=== PATIENT | male | born 1960 | race Caucasian/White ===

== ENCOUNTER 2024-05-01 19:44 | Emergency (ER) | payer MEDICARE ==
[~2024-05-01] VITALS: Ht 177.8 cm; Wt 117.9 kg
[2024-05-01 20:23] LABS: BASOPHILS ABSOLUTE AUTO 0.05 K/mm3 (0.00-0.23); BASOPHILS PERCENT AUTO 1 % (0-2); EOSINOPHILS ABSOLUTE AUTO 0.19 K/mm3 (0.00-0.68); EOSINOPHILS PERCENT AUTO 3 % (0-6); Hematocrit 30.1 % (37.0-53.0); Hemoglobin 9.6 g/dL (13.5-17.5); IMMATURE GRAN ABSOLUTE AUTO 0.02 K/mm3 (0.00-0.10); IMMATURE GRAN PERCENT AUTO 0 % (0-1); LYMPHOCYTES PERCENT AUTO 18 % (21-46); MONOCYTES ABSOLUTE AUTO 0.46 K/mm3 (0.16-1.47); MONOCYTES PERCENT AUTO 7 % (4-13); Mean Corpuscular HGB 25.3 pg (26.0-34.0); Mean Corpuscular HGB Conc 31.9 g/dL (31.5-36.5); Mean Corpuscular Volume 79 fL (80-100); Mean Platelet Volume 9.5 fL (9.1-12.4); NEUTROPHILS ABSOLUTE AUTO 4.41 K/mm3 (1.96-9.15); NEUTROPHILS PERCENT AUTO 71 % (41-73); Platelet Count 329 K/mm3 (150-400); RDW Coefficient Variation 17.2 % (11.7-14.2); RDW Standard Deviation 50.3 fL (35.1-46.3); White Blood Cell Count 6.23 K/mm3 (4.00-11.30)
[2024-05-01 20:45] LABS: Albumin, Blood 2.6 g/dL (3.4-5.0); Albumin/Globulin Ratio 0.6 (0.8-1.8); Bilirubin, Total 0.3 mg/dL (0.1-1.0); Bun/Creatinine Ratio 20.4 (12.0-20.0); Calcium, Blood 8.2 mg/dL (8.5-10.1); Creatinine, Blood 1.37 mg/dL (0.60-1.20); Globulin, Blood 4.7 g/dL (2.2-4.0); Potassium, Blood 4.1 mmol/L (3.5-5.5); Total Protein, Blood 7.3 g/dL (6.4-8.2)
[2024-05-01] MEDS ORDERED: NS 1,000 ML IV SCH (23:55)
[2024-05-01] MEDS ORDERED: Azithromycin 250 MG Tab PO ONE (23:55)
[2024-05-01] MEDS ORDERED: Amoxicillin/Clavulanate K 875 MG Tab PO ONE (23:55)
[2024-05-02 00:34] LABS: Base Excess Venous 0.3 mmol/L; Bicarbonate Venous 24.6 mmol/L (24.0-30.0); PCO2 Venous 40.3 mmHg (38-42)
[2024-05-02 00:43] LABS: Source, Urine Clean Catch
[2024-05-02 00:45] LABS: Bilirubin, Urine Neg (Neg); Blood, Urine Neg (Neg); Glucose Qualitative, Urine 4+ (Neg); Ketones, Urine Neg (Neg); Leukocyte Esterase, Urine Neg (Neg); Nitrite, Urine Neg (Neg); Protein, Urine 1+ (Neg); Urobilinogen, Urine NORM (Normal)
[2024-05-02 00:50] LABS: Appearance, Urine Clear (Clear); Color, Urine Pale Yellow (P-Yellow)
[2024-05-02] MEDS ORDERED: AMOCLA875 PO (01:01)
[2024-05-02] MEDS ORDERED: AZIT250 PO (01:01)
== END 2024-05-02 01:43 | disposition home or self-care (01) ==
LOC: ER 19:44
PROVIDERS: Emergency Medicine; Student in an Organized Health Care Education/Training Program
DX: J18.9 Pneumonia, unspecified organism (principal); D64.9 Anemia, unspecified; E11.65 Type 2 diabetes mellitus with hyperglycemia; R79.89 Other specified abnormal findings of blood chemistry; Z89.512 Acquired absence of left leg below knee; Z89.611 Acquired absence of right leg above knee
CPT/HCPCS: 71046; 80053; 82010; 82803; 83880; 84484; 85025; 93005; 93010; 99285-25; A9270; J7030

== ENCOUNTER 2024-05-06 16:25 | Emergency (ER) | payer MEDICARE ==
[~2024-05-06] VITALS: Ht 177.8 cm; Wt 117.9 kg
[~2024-05-06 16:25] MED LIST: AMOCLA875 PO; AZIT250 PO
[2024-05-06 16:54] LABS: Base Excess Venous 0.7 mmol/L; Bicarbonate Venous 24.5 mmol/L (24.0-30.0); pH Blood Venous 7.39 (7.34-7.37)
[2024-05-06 17:00] LABS: BASOPHILS ABSOLUTE AUTO 0.06 K/mm3 (0.00-0.23); BASOPHILS PERCENT AUTO 1 % (0-2); EOSINOPHILS PERCENT AUTO 5 % (0-6); Hematocrit 32.8 % (37.0-53.0); Hemoglobin 10.1 g/dL (13.5-17.5); IMMATURE GRAN ABSOLUTE AUTO 0.02 K/mm3 (0.00-0.10); IMMATURE GRAN PERCENT AUTO 0 % (0-1); LYMPHOCYTES PERCENT AUTO 18 % (21-46); MONOCYTES ABSOLUTE AUTO 0.32 K/mm3 (0.16-1.47); MONOCYTES PERCENT AUTO 6 % (4-13); Mean Corpuscular HGB 24.2 pg (26.0-34.0); Mean Corpuscular HGB Conc 30.8 g/dL (31.5-36.5); Mean Corpuscular Volume 79 fL (80-100); Mean Platelet Volume 9.6 fL (9.1-12.4); NEUTROPHILS ABSOLUTE AUTO 3.84 K/mm3 (1.96-9.15); NEUTROPHILS PERCENT AUTO 69 % (41-73); Platelet Count 434 K/mm3 (150-400); RDW Coefficient Variation 17.7 % (11.7-14.2); RDW Standard Deviation 50.2 fL (35.1-46.3); Red Blood Cell Count 4.18 M/mm3 (4.30-5.90); White Blood Cell Count 5.54 K/mm3 (4.00-11.30)
[2024-05-06 17:13] LABS: Bun/Creatinine Ratio 20.6 (12.0-20.0); Calcium, Blood 8.7 mg/dL (8.5-10.1); Creatinine, Blood 1.02 mg/dL (0.60-1.20); Potassium, Blood 4.4 mmol/L (3.5-5.5)
[2024-05-06 18:08] LABS: Influenza A, PCR NEGATIVE (NEGATIVE); Influenza B, PCR NEGATIVE (NEGATIVE); Resp Syncytial Virus, PCR NEGATIVE (NEGATIVE); SARS-Cov-2 (COVID-19) PCR, MMC NEGATIVE (NEGATIVE)
[2024-05-06] MEDS ORDERED: Furosemide 10 MG/ML 4ML Vial IV ONE (20:40)
[2024-05-06] MEDS ORDERED: LevoFLOXacin 750 MG Tab PO ONE (21:00)
[2024-05-06] MEDS ORDERED: LEVFLO500 PO (21:01)
[2024-05-06] MEDS ORDERED: BENZ100A PO (21:01)
[2024-05-06] MEDS ORDERED: FURO20 PO (21:01)
[2024-05-06] MEDS ORDERED: POTA10T PO (21:01)
== END 2024-05-06 21:34 | disposition home or self-care (01) ==
LOC: ER 16:25
PROVIDERS: Emergency Medicine
DX: J90 Pleural effusion, not elsewhere classified (principal); R06.02 Shortness of breath; Z59.89 Other problems related to housing and economic circumstances; E11.9 Type 2 diabetes mellitus without complications
CPT/HCPCS: 0241U; 71045; 71260; 80048; 82803; 83880; 84484; 85025; 85379; 93005; 93010; 96374; 99285-25; A9270; J1940; Q9967

== ENCOUNTER → 2024-06-12 | Outpatient (CLI) | payer MEDICARE ==
[~2024-06-12] MED LIST changes: +BENZ100A PO; +FURO20 PO; +LEVFLO500 PO; +POTA10T PO
== END ==
LOC: LAB 17:36 → LAB SHORT 17:36
DX: R82.90 Unspecified abnormal findings in urine (principal)
CPT/HCPCS: 87086

== ENCOUNTER 2024-06-19 15:50 | Emergency (ER) | payer MEDICARE ==
[~2024-06-19] VITALS: Ht 177.8 cm; Wt 117.9 kg
[2024-06-19 16:31] LABS: BASOPHILS ABSOLUTE AUTO 0.03 K/mm3 (0.00-0.23); BASOPHILS PERCENT AUTO 1 % (0-2); EOSINOPHILS ABSOLUTE AUTO 0.22 K/mm3 (0.00-0.68); EOSINOPHILS PERCENT AUTO 4 % (0-6); Hematocrit 30.2 % (37.0-53.0); IMMATURE GRAN ABSOLUTE AUTO 0.02 K/mm3 (0.00-0.10); IMMATURE GRAN PERCENT AUTO 0 % (0-1); LYMPHOCYTES ABSOLUTE AUTO 1.01 K/mm3 (0.84-5.20); LYMPHOCYTES PERCENT AUTO 20 % (21-46); MONOCYTES ABSOLUTE AUTO 0.36 K/mm3 (0.16-1.47); MONOCYTES PERCENT AUTO 7 % (4-13); Mean Corpuscular HGB 22.8 pg (26.0-34.0); Mean Corpuscular HGB Conc 29.8 g/dL (31.5-36.5); Mean Corpuscular Volume 77 fL (80-100); Mean Platelet Volume 10.4 fL (9.1-12.4); NEUTROPHILS ABSOLUTE AUTO 3.42 K/mm3 (1.96-9.15); NEUTROPHILS PERCENT AUTO 68 % (41-73); Platelet Count 286 K/mm3 (150-400); RDW Coefficient Variation 18.6 % (11.7-14.2); RDW Standard Deviation 51.7 fL (35.1-46.3); Red Blood Cell Count 3.94 M/mm3 (4.30-5.90); White Blood Cell Count 5.06 K/mm3 (4.00-11.30)
[2024-06-19 16:56] LABS: Albumin/Globulin Ratio 0.7 (0.8-1.8); Bilirubin, Total 0.4 mg/dL (0.1-1.0); Bun/Creatinine Ratio 21.4 (12.0-20.0); Calcium, Blood 8.6 mg/dL (8.5-10.1); Creatinine, Blood 0.84 mg/dL (0.60-1.20); Globulin, Blood 4.4 g/dL (2.2-4.0); Potassium, Blood 4.6 mmol/L (3.5-5.5); Total Protein, Blood 7.4 g/dL (6.4-8.2)
[2024-06-19] MEDS ORDERED: AZIT250 PO (19:56)
[2024-06-19] MEDS ORDERED: BUDESONIDE-FO10.2 G2 INH (19:56)
== END 2024-06-19 20:30 | disposition home or self-care (01) ==
LOC: ER 15:50
PROVIDERS: Emergency Medicine
DX: R06.02 Shortness of breath (principal); E11.9 Type 2 diabetes mellitus without complications; Z88.0 Allergy status to penicillin; Z88.5 Allergy status to narcotic agent; Z88.1 Allergy status to other antibiotic agents
CPT/HCPCS: 71046; 80053; 83880; 84484; 85025; 93005; 93010; 99285-25

== ENCOUNTER 2024-06-23 09:29 | Day surgery (SDC) | payer MEDICARE ==
[~2024-06-23 09:29] MED LIST changes: +BUDESONIDE-FO10.2 G2 INH
== END 2024-06-23 23:00 | disposition home or self-care (01) ==
LOC: WOUND 09:29
DX: T81.31XA Disruption of external operation (surgical) wound, not elsewhere classified, initial encounter (principal); E11.622 Type 2 diabetes mellitus with other skin ulcer; Z89.512 Acquired absence of left leg below knee; Z89.511 Acquired absence of right leg below knee; Z88.0 Allergy status to penicillin; Z88.5 Allergy status to narcotic agent; Z88.1 Allergy status to other antibiotic agents; I50.9 Heart failure, unspecified; K21.9 Gastro-esophageal reflux disease without esophagitis
CPT/HCPCS: A6213; G0463

== ENCOUNTER 2024-07-01 02:17 | Day surgery (SDC) | payer MEDICARE | END 2024-07-01 23:33 | disposition home or self-care (01) | LOC: WOUND 02:17 | DX: E11.622 Type 2 diabetes mellitus with other skin ulcer (principal); T81.31XA Disruption of external operation (surgical) wound, not elsewhere classified, initial encounter; Z88.0 Allergy status to penicillin; Z88.1 Allergy status to other antibiotic agents; Z88.5 Allergy status to narcotic agent; Z89.511 Acquired absence of right leg below knee; Z89.512 Acquired absence of left leg below knee | CPT/HCPCS: A6213; G0463 ==

== ENCOUNTER 2024-07-09 03:02 | Day surgery (SDC) | payer MEDICARE | END 2024-07-09 23:00 | disposition home or self-care (01) | LOC: WOUND 03:02 | DX: E11.622 Type 2 diabetes mellitus with other skin ulcer (principal); L97.815 Non-pressure chronic ulcer of other part of right lower leg with muscle involvement without evidence of necrosis; T81.31XD Disruption of external operation (surgical) wound, not elsewhere classified, subsequent encounter; E11.69 Type 2 diabetes mellitus with other specified complication; Z89.511 Acquired absence of right leg below knee; Z89.512 Acquired absence of left leg below knee; Y83.8 Other surgical procedures as the cause of abnormal reaction of the patient, or of later complication, without mention of misadventure at the time of the procedure | CPT/HCPCS: A6213; G0463 ==

== ENCOUNTER 2024-08-04 10:20 | Inpatient (IN) | payer MEDICARE, BC ==
[~2024-08-04] VITALS: Ht 175.3 cm; Wt 107.7 kg
[2024-08-04] MEDS ORDERED: PREG150 PO (10:52)
[2024-08-04] MEDS ORDERED: CARV6.25 PO (10:52)
[2024-08-04] MEDS ORDERED: CLOP75 PO (10:53)
[2024-08-04] MEDS ORDERED: TAMS.4ER PO (10:53)
[2024-08-04] MEDS ORDERED: ROSUVASTATIN CA20 MG PO (10:53)
[2024-08-04] MEDS ORDERED: PANTOPRAZOLE SO40 M2 PO (10:54)
[2024-08-04] MEDS ORDERED: TRAZ100 PO (10:54)
[2024-08-04] MEDS ORDERED: DULO60 PO (10:55)
[2024-08-04] MEDS ORDERED: METFORMIN HCL500 M2 PO (10:55)
[2024-08-04] MEDS ORDERED: METF500 PO (10:56)
[2024-08-04] MEDS ORDERED: TORSE20 PO (10:56)
[2024-08-04] MEDS ORDERED: ASPI81CH PO (10:56)
[2024-08-04] MEDS ORDERED: GABA100 PO (10:57)
[2024-08-04] MEDS ORDERED: KLOR-CON 1010 ME9 PO (10:58)
[2024-08-04] MEDS ORDERED: Ondansetron HCl 2 MG / ML 2ML Vial IV PRN (11:05)
[2024-08-04 11:24] LABS: BASOPHILS ABSOLUTE AUTO 0.03 K/mm3 (0.00-0.23); BASOPHILS PERCENT AUTO 1 % (0-2); EOSINOPHILS ABSOLUTE AUTO 0.03 K/mm3 (0.00-0.68); EOSINOPHILS PERCENT AUTO 1 % (0-6); Hematocrit 35.1 % (37.0-53.0); Hemoglobin 10.5 g/dL (13.5-17.5); IMMATURE GRAN ABSOLUTE AUTO 0.03 K/mm3 (0.00-0.10); IMMATURE GRAN PERCENT AUTO 1 % (0-1); LYMPHOCYTES ABSOLUTE AUTO 0.37 K/mm3 (0.84-5.20); LYMPHOCYTES PERCENT AUTO 7 % (21-46); MONOCYTES ABSOLUTE AUTO 0.17 K/mm3 (0.16-1.47); MONOCYTES PERCENT AUTO 3 % (4-13); Mean Corpuscular HGB 23.2 pg (26.0-34.0); Mean Corpuscular HGB Conc 29.9 g/dL (31.5-36.5); Mean Corpuscular Volume 78 fL (80-100); NEUTROPHILS ABSOLUTE AUTO 4.85 K/mm3 (1.96-9.15); NEUTROPHILS PERCENT AUTO 89 % (41-73); Platelet Count 219 K/mm3 (150-400); RDW Coefficient Variation 21.8 % (11.7-14.2); RDW Standard Deviation 60.3 fL (35.1-46.3); Red Blood Cell Count 4.52 M/mm3 (4.30-5.90); White Blood Cell Count 5.48 K/mm3 (4.00-11.30)
[2024-08-04 11:26] LABS: Mean Platelet Volume 10.9 fL (9.1-12.4)
[2024-08-04 11:46] LABS: Albumin/Globulin Ratio 0.9 (0.8-1.8); Bilirubin, Total 0.9 mg/dL (0.1-1.0); Bun/Creatinine Ratio 25.2 (12.0-20.0); Creatinine, Blood 0.91 mg/dL (0.60-1.20); Globulin, Blood 4.4 g/dL (2.2-4.0); Potassium, Blood 4.3 mmol/L (3.5-5.5); Total Protein, Blood 8.4 g/dL (6.4-8.2)
[2024-08-04] MEDS ORDERED: Aspirin 325 MG Tab PO ONE (12:05)
[2024-08-04] MEDS ORDERED: Nitroglycerin 0.4 MG SUBL SL PRN (12:05)
[2024-08-04] MEDS ORDERED: Furosemide 10 MG/ML 10ML Vial IV ONE (12:15)
[2024-08-04] MEDS ORDERED: Ondansetron HCl 2 MG / ML 2ML Vial IV ONE (12:15)
[2024-08-04 13:01] LABS: International Normalized Ratio 1.14; Prothrombin Time Results 12.4 Sec (9.7-11.5)
[2024-08-04] MEDS ORDERED: Heparin Sodium 5000 Units/ML 1ML MDV IV ONE ×2 (13:45→19:20)
[2024-08-04] MEDS ORDERED: Heparin Sodium,Porcine/0.5 NS 500 ML IV SCH ×2 (13:45→19:20)
[2024-08-04 14:20] VITALS: BP 157/89
[2024-08-04 15:33] VITALS: BP 140/87
[2024-08-04] MEDS ORDERED: Bumetanide 0.25 MG/ML 4ML ViaL IV SCH (16:00)
[2024-08-04] MEDS ORDERED: Aspirin 81 MG Chew PO SCH (16:00)
[2024-08-04] MEDS ORDERED: Enoxaparin 40 MG/0.4 ML SYR SC SCH (16:00)
[2024-08-04] MEDS ORDERED: Empagliflozin 10 MG TAB PO SCH (16:00)
[2024-08-04] MEDS ORDERED: Atorvastatin 40 MG Tab PO SCH (16:00)
[2024-08-04] MEDS ORDERED: Carvedilol 3.125 MG Tab PO SCH (16:00)
[2024-08-04] MEDS ORDERED: Spironolactone 50 MG Tab PO SCH (16:00)
[2024-08-04] MEDS ORDERED: Clopidogrel Bisulfate 75 MG Tab PO SCH (16:00)
[2024-08-04] MEDS ORDERED: Insulin Regular 100 UNIT/ML 10ML Vial SC SCH (16:30)
--- NOTE | 2024-08-04 17:39 | NUR ---
SHIFT SUMMARY PT REMAINS ALERT AND ORIENTED. BP STABLE. HR REMAINS NSR WITH FIRST DEGREE 90'S. O2 SATS REMAIN ABOVE 90% ON 2L NC. PT DENIES ANY PAIN. PT DOES COMPLAIN OF NAUSEA. 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 CLARK IN TO ASSESS WOUND. ORDERS TO KEEP OPEN TO AIR. PT ABLE TO REPOSITION HIMSELF IN THE BED. DR. ALEJANDRE IN THIS EVENING TO DISCUSS ANGIOGRAM. PLAN TO BE NPO AT MIDNIGHT. AWAITING PHARMACY FOR HEPARIN DRIP ORDERS. WILL REPORT OFF TO ONCOMING RN
--- NOTE | 2024-08-04 19:40 | NUR ---
ASSUMPTION OF CARE ASSUMED PT'S CARE AT 1900,PT AWAKE RESTING IN BED.BEDSIDE REPORT COMPLETED,PLAN OF CARE REVIEWED.HEPARIN GTT INITIATED PER ORDER.TEACHING ON LAB DRAWS AND BLEEDING RISKS WHILE ON HEPARIN GTT COMPLETED.PT VERBALIZES UNDERSTANDING.PT REQUESTED MELATONIN FOR SLEEP IN ADDITION TO SCHEDULED TRAZODONE.CALL LIGHT AND PT'S ITEMS WITHIN REACH.MONITORING ONGOING PER CAREPLAN.
[2024-08-04 20:05] VITALS: BP 135/79
[2024-08-04] MEDS ORDERED: Melatonin 5 MG Tablet PO PRN (20:22)
[2024-08-04] MEDS ORDERED: TraZODone HCl 100 MG Tab PO SCH (21:00)
[2024-08-04] MEDS ORDERED: Pregabalin 75 MG Cap PO SCH (21:00)
[2024-08-04] MEDS ORDERED: Sacubitril/Valsartan 24 MG-26 MG Tab PO SCH (21:00)
[2024-08-04] MEDS ORDERED: Gabapentin 300 MG Cap PO SCH (21:00)
[2024-08-04] MEDS ORDERED: DULoxetine HCL 60 MG Capsule DR PO SCH (21:00)
[2024-08-05] VITALS (16 sets, daily range): BP systolic 96–144; BP diastolic 34–111
[2024-08-05 02:13] LABS: BASOPHILS ABSOLUTE AUTO 0.04 K/mm3 (0.00-0.23); BASOPHILS PERCENT AUTO 1 % (0-2); EOSINOPHILS ABSOLUTE AUTO 0.08 K/mm3 (0.00-0.68); EOSINOPHILS PERCENT AUTO 1 % (0-6); Hematocrit 32.8 % (37.0-53.0); Hemoglobin 10.2 g/dL (13.5-17.5); IMMATURE GRAN ABSOLUTE AUTO 0.03 K/mm3 (0.00-0.10); IMMATURE GRAN PERCENT AUTO 1 % (0-1); LYMPHOCYTES ABSOLUTE AUTO 1.04 K/mm3 (0.84-5.20); LYMPHOCYTES PERCENT AUTO 18 % (21-46); MONOCYTES ABSOLUTE AUTO 0.41 K/mm3 (0.16-1.47); MONOCYTES PERCENT AUTO 7 % (4-13); Mean Corpuscular HGB 23.5 pg (26.0-34.0); Mean Corpuscular HGB Conc 31.1 g/dL (31.5-36.5); Mean Corpuscular Volume 76 fL (80-100); Mean Platelet Volume 10.4 fL (9.1-12.4); NEUTROPHILS ABSOLUTE AUTO 4.16 K/mm3 (1.96-9.15); NEUTROPHILS PERCENT AUTO 72 % (41-73); Platelet Count 230 K/mm3 (150-400); RDW Coefficient Variation 21.8 % (11.7-14.2); RDW Standard Deviation 59.2 fL (35.1-46.3); Red Blood Cell Count 4.34 M/mm3 (4.30-5.90); White Blood Cell Count 5.76 K/mm3 (4.00-11.30)
[2024-08-05 02:39] LABS: Magnesium, Blood 1.7 mg/dL (1.6-2.4)
[2024-08-05 02:47] LABS: Albumin, Blood 3.6 g/dL (3.4-5.0); Albumin/Globulin Ratio 0.9 (0.8-1.8); Bilirubin, Total 0.8 mg/dL (0.1-1.0); Bun/Creatinine Ratio 21.5 (12.0-20.0); Calcium, Blood 10.3 mg/dL (8.5-10.1); Creatinine, Blood 1.07 mg/dL (0.60-1.20); Potassium, Blood 3.8 mmol/L (3.5-5.5); Total Protein, Blood 7.6 g/dL (6.4-8.2)
[2024-08-05] MEDS ORDERED: Dose Adjust by Pharmacy XX STA ×2 (03:00→22:00)
[2024-08-05] MEDS ORDERED: Heparin Sodium 5000 Units/ML 1ML MDV IV ONE (03:05)
[2024-08-05] MEDS ORDERED: Pantoprazole Sodium 40 MG Tab PO SCH (06:00)
[2024-08-05] MEDS ORDERED: Magnesium Sulf 2 GM/Water 50ML 50 ML IV ONE (06:25)
[2024-08-05] MEDS ORDERED: NS 500 ML IV ONE (06:35)
--- NOTE | 2024-08-05 06:49 | NUR ---
PT MONITORED THROUGH THE SHIFT,NO ACUTE CHANGES NOTED.PT DENIES CHEST PAIN/PRESSURE.REPORTS SLEEPING WELL OVERNIGHT.CONTINUES ON HEPARIN GTT ORDERED.PT HAS BEEN NPO SINCE MIDNIGHT ORDERED.PT DENIES PAIN,DENIES NEEDS AT THIS TIME.CALL LIGHT AND PTS ITEMS WITHIN REACH.
[2024-08-05] MEDS ORDERED: NiCARdipine HCL 1,000 MCG/5 ML SYR ONE (07:54)
[2024-08-05] MEDS ORDERED: NS 250 ML IV ONE (07:54)
[2024-08-05] MEDS ORDERED: Nitroglycerin 2 MG/20 ML BTL ONE (07:54)
[2024-08-05] MEDS ORDERED: NS 2,000 ML IV ONE (07:54)
[2024-08-05] MEDS ORDERED: Heparin Sodium 1000 Units/ML 10ML MDV ONE (07:54)
[2024-08-05 07:56] LABS: CHOL/HDL RATIO 2.4; Cholesterol 120 mg/dL (50-200); HDL Cholesterol 49 mg/dL (>39); LDL/HDL RATIO 1.1; Low Density Lipoprotein Chol 54 mg/dL (0-110); Triglycerides 83 mg/dL (30-160); Very Low Density Lipoprot Chol 16 mg/dL (6-32)
[2024-08-05] MEDS ORDERED: Midazolam HCl 1MG / ML 2ML Vial ONE (08:58)
[2024-08-05] MEDS ORDERED: FentaNYL Citrate 50 MCG/ML 2 ML Injection ONE (08:58)
[2024-08-05] MEDS ORDERED: Tamsulosin HCl 0.4 MG Cap PO SCH ×2 (09:00→21:00)
[2024-08-05] MEDS ORDERED: Furosemide 10 MG/ML 4ML Vial IV SCH (09:00)
[2024-08-05] MEDS ORDERED: DiphenhydrAMINE HCl 50 MG/ML 1ML Vial ONE (09:06)
--- NOTE | 2024-08-05 10:07 | NUR ---
SPOKE WITH DR. GOODRICH ABOUT TR BAND AND HEPARIN GTT RESTART, HAD ALREADY UPDATED ORDER, CALLED [facility] AND HAD STOPPED HEPARIN GTT. SEE ADDITIONAL NOTES/PROCEDURE REPORTS.
--- NOTE | 2024-08-05 10:08 | NUR ---
Pt returned from lab animal technician with heparin gtt infusing. Noted Dr. Gonsales order at this time to restart after TR band deflated, so it was stopped at this time. Pharmacy notified.
--- NOTE | 2024-08-05 10:20 | NUR ---
TR BAND IN PLACE, NO BLEEDING, NO SWELLING, NO HEMATOMA. PT IS SLEEPING. SEQUENTIAL VITAL SIGNS Q 15MIN IN PROGRESS, CONTINUOUS SPO2 MONITORING WELL TELEMETRY. WEARING 2 L/MIN OF O2 DUE TO SLEEP APNEA AND HYPOXIA DURING SLEEP LAST NIGHT PER NOC SHIFT RN REPORT. NOTIFIED PHARMACY OF HEPARIN GTT ORDERS FROM [facility].
--- NOTE | 2024-08-05 11:50 | NUR ---
Right radial site recovering without any changes. Pt's is at the bedside. Pt is awake enough to sit up and eat, drink and take po meds.
--- NOTE | 2024-08-05 13:23 | NUR ---
TR band is completely deflated. Scant amount of blood noted, dried, around the band border but no hematoma, no active bleeding and no swelling. Pt denies any discomfort. Rema Howard notified that pt's is in the room and they would like to talk with the still worker helper when available.
--- NOTE | 2024-08-05 14:28 | NUR ---
TR band removed, site cleansed with chlorohexidine and dried with gauze. sterile tegederm dressing applied to the site. NO hematoma, no bleeding and no swelling. Small amount of bruising noted surrounding the site. Pt has no voiced complaints. and pt state doctor has not been to see them today.
--- NOTE | 2024-08-05 16:18 | NUR ---
Dr. Saucedo here to talk with patient and his . Plan is for pt to continue diuresis, get discharged probably in 2 days when life vest is available and then at a later date to get surgery for a defibrillator. Pt and expressed gratitude for having some answers and an agreeable plan for the pt's care.
[2024-08-05] MEDS ORDERED: Melatonin 5 MG Tablet PO PRN (20:35)
[2024-08-06] VITALS (7 sets, daily range): BP systolic 96–151; BP diastolic 61–102
[2024-08-06 04:19] LABS: BASOPHILS ABSOLUTE AUTO 0.06 K/mm3 (0.00-0.23); BASOPHILS PERCENT AUTO 1 % (0-2); EOSINOPHILS ABSOLUTE AUTO 0.33 K/mm3 (0.00-0.68); EOSINOPHILS PERCENT AUTO 5 % (0-6); Hematocrit 34.5 % (37.0-53.0); Hemoglobin 10.5 g/dL (13.5-17.5); IMMATURE GRAN ABSOLUTE AUTO 0.02 K/mm3 (0.00-0.10); IMMATURE GRAN PERCENT AUTO 0 % (0-1); LYMPHOCYTES PERCENT AUTO 19 % (21-46); MONOCYTES PERCENT AUTO 6 % (4-13); Mean Corpuscular HGB 23.1 pg (26.0-34.0); Mean Corpuscular HGB Conc 30.4 g/dL (31.5-36.5); Mean Corpuscular Volume 76 fL (80-100); Mean Platelet Volume 10.1 fL (9.1-12.4); NEUTROPHILS ABSOLUTE AUTO 4.32 K/mm3 (1.96-9.15); NEUTROPHILS PERCENT AUTO 68 % (41-73); Platelet Count 230 K/mm3 (150-400); RDW Coefficient Variation 21.9 % (11.7-14.2); RDW Standard Deviation 59.2 fL (35.1-46.3); Red Blood Cell Count 4.54 M/mm3 (4.30-5.90); White Blood Cell Count 6.33 K/mm3 (4.00-11.30)
[2024-08-06 04:38] LABS: Bun/Creatinine Ratio 27.6 (12.0-20.0); Calcium, Blood 9.4 mg/dL (8.5-10.1); Creatinine, Blood 1.16 mg/dL (0.60-1.20); Potassium, Blood 3.5 mmol/L (3.5-5.5)
[2024-08-06] MEDS ORDERED: Dose Adjust by Pharmacy XX STA ×2 (04:58→12:19)
--- NOTE | 2024-08-06 06:32 | NUR ---
SHIFT SUMMARY PT HAS TOLERATED SHIFT WELL WITH NO SIGNIFICANT EVENTS OR CHANGES OVERNIGHT. PT STATES THAT HE IS TIRED THIS MORNING. PT WAS NOT ABLE TO SLEEP FOR EXTENDED PERIODS DUE TO VARIOUS INTERRUPTIONS THROUGHOUT NIGHT. PT DOES NOT HAVE ANY COMPLAINTS OF PAIN AT THIS TIME. PT APPEARS TO BE RESTING COMFORTABLY IN ROOM AT THIS TIME. WILL CONTINUE TO MONITOR UNTIL REPORT PASSED TO DAY SHIFT TEAM.
--- NOTE | 2024-08-06 12:31 | NUR ---
Drs. Reynolds and Gabby notified of trending down troponin.
[2024-08-06] MEDS ORDERED: CARV3.125 PO (13:25)
[2024-08-06] MEDS ORDERED: ENTRESTO 24 MG1 EACH PO (13:28)
[2024-08-06] MEDS ORDERED: JARDIANCE10 MG PO (13:28)
[2024-08-06] MEDS ORDERED: ALDACTONE50 MG PO (13:29)
--- NOTE | 2024-08-06 15:25 | NUR ---
REPORT RECIEVED FROM ALEJANDRO HALLMAN. THIS RN TO TAKE OVER CARE.
--- NOTE | 2024-08-06 18:36 | NUR ---
DISCHARGE UPDATE DISCHARGE PACKET GONE OVER WITH PT AT 181. PT DISCHARGED AT 1825 VIA WHEELCHAIR AND ON RA. PT ABLE TO TRANSFER SELF TO AND FROM WHEELCHAIR ON HIS OWN TOLERATED WELL. DISCHARGE PACKET WITH PT AT TIME OF DISCHARGE. LIFE VEST BOX WITH PT AT TIME OF DISCHARGE. OTHER PERSONAL BELONGING WITH PT .
== END 2024-08-06 18:30 | disposition home or self-care (01) | DRG 280 ==
LOC: ER 10:20 → ERHOLD 12:51 → PCU 12:51
PROVIDERS: Family Medicine Adult Medicine; Internal Medicine Cardiovascular Disease; Student in an Organized Health Care Education/Training Program; ADMIT Family Medicine
PROC: 4A023N6 Measurement of Cardiac Sampling and Pressure, Right Heart, Percutaneous Approach (ICD-10-PCS; principal; 2024-08-05)
PROC: B2111ZZ Fluoroscopy of Multiple Coronary Arteries using Low Osmolar Contrast (ICD-10-PCS; 2024-08-05)
DX: I21.4 Non-ST elevation (NSTEMI) myocardial infarction (principal); I50.21 Acute systolic (congestive) heart failure; E87.1 Hypo-osmolality and hyponatremia; I11.0 Hypertensive heart disease with heart failure; D64.9 Anemia, unspecified; Z68.37 Body mass index [BMI] 37.0-37.9, adult; Z66 Do not resuscitate; G47.30 Sleep apnea, unspecified; I25.10 Atherosclerotic heart disease of native coronary artery without angina pectoris; E78.5 Hyperlipidemia, unspecified; I25.5 Ischemic cardiomyopathy; E66.01 Morbid (severe) obesity due to excess calories; I34.2 Nonrheumatic mitral (valve) stenosis; E83.52 Hypercalcemia; E11.65 Type 2 diabetes mellitus with hyperglycemia; E11.51 Type 2 diabetes mellitus with diabetic peripheral angiopathy without gangrene; Z91.198 Patient's noncompliance with other medical treatment and regimen for other reason; I25.2 Old myocardial infarction; Z87.891 Personal history of nicotine dependence; Z79.02 Long term (current) use of antithrombotics/antiplatelets; Z79.82 Long term (current) use of aspirin; Z79.899 Other long term (current) drug therapy; Z83.3 Family history of diabetes mellitus; Z89.422 Acquired absence of other left toe(s); Z89.421 Acquired absence of other right toe(s); Z88.0 Allergy status to penicillin; Z88.1 Allergy status to other antibiotic agents; Z88.5 Allergy status to narcotic agent; Z79.2 Long term (current) use of antibiotics; Z79.51 Long term (current) use of inhaled steroids
CPT/HCPCS: 36415; 71045; 76937; 80048; 80053; 80061; 82947; 83036; 83690; 83735; 83880; 84484; 85025; 85520; 85610; 85730; 93005; 93010; 93454; 94762; 96374; 96375; 99152; 99153; 99285-25; A9270; C1769; C1894; C8929; J1200; J1644; J1650; J1815; J1938; J2250; J2405; J3010; J3475; J7030; J7040; J7050; Q9957; Q9967

== ENCOUNTER 2024-08-25 08:00 | Day surgery (SDC) | payer BC, MEDICARE ==
[~2024-08-25 08:00] MED LIST changes: +ALDACTONE50 MG PO; +ASPI81CH PO; +CARV3.125 PO; +CARV6.25 PO; +CLOP75 PO; +DULO60 PO; +ENTRESTO 24 MG1 EAC3 PO; +ENTRESTO 24 MG1 EACH PO; +FERROUS GLUCON324 M2 PO; +GABA300 PO; +HUMULIN R500 UNIT/1 SC; +JARDIANCE10 MG PO; +KLOR-CON 1010 ME9 PO; +LOSA25 PO; +METF500 PO; +METFORMIN HCL500 M2 PO; +PANTOPRAZOLE SO40 M2 PO; +PREG150 PO; +ROSUVASTATIN CA20 MG PO; +TAMS.4ER PO; +TORSE20 PO; +TRAZ100 PO
== END 2024-08-25 23:00 | disposition home or self-care (01) ==
LOC: WOUND 08:00
DX: E11.622 Type 2 diabetes mellitus with other skin ulcer (principal); L97.815 Non-pressure chronic ulcer of other part of right lower leg with muscle involvement without evidence of necrosis; E11.69 Type 2 diabetes mellitus with other specified complication; M86.161 Other acute osteomyelitis, right tibia and fibula; Z89.512 Acquired absence of left leg below knee; Z89.511 Acquired absence of right leg below knee; T81.31XA Disruption of external operation (surgical) wound, not elsewhere classified, initial encounter; Y83.8 Other surgical procedures as the cause of abnormal reaction of the patient, or of later complication, without mention of misadventure at the time of the procedure
CPT/HCPCS: A6213

== ENCOUNTER 2024-09-03 02:33 | Day surgery (SDC) | payer MEDICARE | END 2024-09-03 23:00 | disposition home or self-care (01) | LOC: WOUND 02:33 | DX: E11.622 Type 2 diabetes mellitus with other skin ulcer (principal); L97.815 Non-pressure chronic ulcer of other part of right lower leg with muscle involvement without evidence of necrosis; M86.161 Other acute osteomyelitis, right tibia and fibula; Z89.511 Acquired absence of right leg below knee; Z89.512 Acquired absence of left leg below knee | CPT/HCPCS: A6213; G0463 ==

== ENCOUNTER 2024-09-09 15:39 | Emergency (ER) | payer MEDICARE ==
[~2024-09-09] VITALS: Ht 177.8 cm; Wt 112.0 kg
[2024-09-09 17:12] LABS: BASOPHILS ABSOLUTE AUTO 0.05 K/mm3 (0.00-0.23); BASOPHILS PERCENT AUTO 1 % (0-2); EOSINOPHILS ABSOLUTE AUTO 0.31 K/mm3 (0.00-0.68); EOSINOPHILS PERCENT AUTO 5 % (0-6); Hematocrit 36.5 % (37.0-53.0); Hemoglobin 11.8 g/dL (13.5-17.5); IMMATURE GRAN ABSOLUTE AUTO 0.06 K/mm3 (0.00-0.10); IMMATURE GRAN PERCENT AUTO 1 % (0-1); LYMPHOCYTES ABSOLUTE AUTO 1.19 K/mm3 (0.84-5.20); LYMPHOCYTES PERCENT AUTO 20 % (21-46); MONOCYTES ABSOLUTE AUTO 0.36 K/mm3 (0.16-1.47); MONOCYTES PERCENT AUTO 6 % (4-13); Mean Corpuscular HGB Conc 32.3 g/dL (31.5-36.5); Mean Corpuscular Volume 74 fL (80-100); NEUTROPHILS ABSOLUTE AUTO 4.02 K/mm3 (1.96-9.15); NEUTROPHILS PERCENT AUTO 67 % (41-73); NRBC ABSOLUTE 0.00 K/mm3 (0.00-0.02); NRBC Auto 0.0 /100 WBC (0.0-0.2); RDW Coefficient Variation 21.2 % (11.7-14.2); RDW Standard Deviation 56.3 fL (35.1-46.3)
[2024-09-09 18:04] LABS: Alanine Aminotransfer (ALT/SGP 29.0 U/L (12-78); Albumin, Blood 3.3 g/dL (3.4-5.0); Albumin/Globulin Ratio 0.8 (0.8-1.8); Anion Gap 9.0 mmol/L (3-11); Aspartate Aminotrans (AST/SGOT 30.0 U/L (12-37); Bilirubin, Total 0.3 mg/dL (0.1-1.0); Blood Urea Nitrogen 32.0 mg/dL (8-24); CO2, Blood 28.0 mmol/L (21-32); Calcium, Blood 8.9 mg/dL (8.5-10.1); Chloride, Blood 99.0 mmol/L (98-108); Creatinine, Blood 1.04 mg/dL (0.60-1.20); Globulin, Blood 4.2 g/dL (2.2-4.0); Glucose, Blood 230.0 mg/dL (70-99); Potassium, Blood 4.4 mmol/L (3.5-5.5); Sodium, Blood 132.0 mmol/L (136-145); Total Protein, Blood 7.5 g/dL (6.4-8.2)
[2024-09-09] MEDS ORDERED: Ondansetron HCl 2 MG / ML 2ML Vial IV ONE (19:45)
[2024-09-09] MEDS ORDERED: ONDA4ODT MM (20:25)
== END 2024-09-09 20:27 | disposition home or self-care (01) ==
LOC: ER 15:39
PROVIDERS: Emergency Medicine
DX: R11.2 Nausea with vomiting, unspecified (principal); E11.9 Type 2 diabetes mellitus without complications; G47.30 Sleep apnea, unspecified; I25.10 Atherosclerotic heart disease of native coronary artery without angina pectoris; I25.2 Old myocardial infarction; I50.20 Unspecified systolic (congestive) heart failure; E78.5 Hyperlipidemia, unspecified; K21.9 Gastro-esophageal reflux disease without esophagitis; N40.0 Benign prostatic hyperplasia without lower urinary tract symptoms; Z88.0 Allergy status to penicillin; Z88.5 Allergy status to narcotic agent; Z88.1 Allergy status to other antibiotic agents; Z79.02 Long term (current) use of antithrombotics/antiplatelets; Z79.82 Long term (current) use of aspirin; Z79.84 Long term (current) use of oral hypoglycemic drugs; Z79.4 Long term (current) use of insulin; Z79.899 Other long term (current) drug therapy
CPT/HCPCS: 71045; 80053; 83690; 84484; 85025; 93005; 93010; 96374; 99284-25; J2405